=== PATIENT | male | born 1980 | race Caucasian/White ===

== ENCOUNTER 2021-06-10 07:33 | Emergency (ER) | payer OTHER ==
[~2021-06-10] VITALS: Ht 157.5 cm; Wt 63.5 kg
[~2021-06-10 07:33] MED LIST: ALBU90OI INH; AMOCLA875 PO; AZIT250 PO; BENZ100A PO; BISA5EC PO; CIPR500 PO; COLACE100 MG; FLUO10; FLUO20 PO; HYDACE5 PO; IBUP600 PO; LORA1 PO; OMEP20ER; OSEL75CA PO; PRED20 PO; RXCLIN PO; RXONDA4ODT MM; RXOXYACE PO; VENL150ER PO
== END 2021-06-10 09:50 | disposition home or self-care (01) ==
LOC: ER 07:33
DX: U07.1 COVID-19 (principal); F17.210 Nicotine dependence, cigarettes, uncomplicated
CPT/HCPCS: 99284

== ENCOUNTER 2022-03-20 20:25 | Emergency (ER) | payer OTHER ==
[2022-03-21] MEDS ORDERED: ONDA4ODT MM (00:06)
== END 2022-03-21 00:35 | disposition home or self-care (01) ==
DX: R11.2 Nausea with vomiting, unspecified (principal); F32.A Depression, unspecified; F17.210 Nicotine dependence, cigarettes, uncomplicated; Z20.822 Contact with and (suspected) exposure to COVID-19; Z79.899 Other long term (current) drug therapy

== ENCOUNTER → 2022-06-22 | Outpatient (CLI) | payer OTHER ==
[~2022-06-22] MED LIST changes: +ONDA4ODT MM
== END | disposition home or self-care (01) ==
LOC: LAB 15:05 → LAB SHORT 15:05
DX: R10.9 Unspecified abdominal pain (principal)
CPT/HCPCS: 87338

== ENCOUNTER 2022-09-13 21:27 | Emergency (ER) | payer OTHER ==
[~2022-09-13] VITALS: Ht 160 cm; Wt 68.0 kg
[2022-09-13 21:47] VITALS: BP 131/96
== END 2022-09-13 22:21 | disposition home or self-care (01) ==
LOC: ER 21:27
DX: F10.929 Alcohol use, unspecified with intoxication, unspecified (principal); F17.210 Nicotine dependence, cigarettes, uncomplicated
CPT/HCPCS: 99282